=== PATIENT | male | born 1945 | race Caucasian/White ===

== ENCOUNTER 2021-05-12 17:51 | Inpatient (IN) | payer OTHER, SELFPAY ==
[~2021-05-12] VITALS: Ht 177.8 cm; Wt 96.6 kg
[2021-05-12 17:51] VITALS: BP_SYST 196
[~2021-05-12 17:51] MED LIST: ARA20 PO; CARB15DR OP; CETI-80 PO; LEVO88TA5 PO; LOP600 PO; MONT-40 PO; MOXI3DRO13 LEFT EYE; NEU300 PO; OMEP20CA15 PO; OXYIR5 PO; POLY10DR18 LEFT EYE; PREDEYE1% LEFT EYE; TRAZ-251 PO; VENL150C53 PO
--- NOTE | 2021-05-12 18:00 | NUR ---
ER DR. TENORIO EXAMINING PT ON NANCY
--- NOTE | 2021-05-12 18:20 | NUR ---
Placed in room 3 . Placed on compliance monitor, blood pressure machine and pulse oximeter. To gown for exam. Side rails up.
--- NOTE | 2021-05-12 18:25 | NUR ---
PT BIBA FROM HOME C/O SOB AND COUGH FOR ABOUT A WEEK. PER EMS PT 02 SAT ON SCENE WAS IN THE 70S. PT PLACED ON NRB @ 15 LPM, PT ARRIVES 98%, COOL, PALE, DIAPHORETIC. DENIES ANY PAIN. STATES HX OF COPD & ASTHMA. PT IS EASILY AGITATED
--- NOTE | 2021-05-12 18:30 | NUR ---
ATTEMPT TO START PIV, PT YELLING "TAKE IT OUT" AND REFUSING ANOTHER ATTEMPT AT THIS TIME
--- NOTE | 2021-05-12 19:09 | NUR ---
LAB AT THE BEDSIDE
--- NOTE | 2021-05-12 19:24 | NUR ---
REPORT GIVEN TO BOB HOLGUIN FOR CONTINUING CARE
--- NOTE | 2021-05-12 19:48 | NUR ---
Dr. Isaac bedside for pt re-eval and update
--- NOTE | 2021-05-12 19:53 | NUR ---
IV start successful on R upper arm, 20 G
[2021-05-12 20:02] LABS: BASOPHILS # (AUTO) 0.1 K/uL (0.0-0.2); BASOPHILS % (AUTO) 0.7 % (0.0-2.0); EOSINOPHILS # (AUTO) 0.2 K/uL (0.0-0.4); HEMATOCRIT 39.4 % (36-54); HEMOGLOBIN 13.1 g/dL (14.0-18.0); LYMPHOCYTES # (AUTO) 0.6 K/uL (1.0-5.5); LYMPHOCYTES % (AUTO) 7.5 % (20.5-51.5); MEAN CORPUSCULAR HEMOGLOBIN 29 pg (27-31); MEAN CORPUSCULAR HGB CONC 33 % (32-36); MEAN CORPUSCULAR VOLUME 88 fL (79.0-98.0); MONOCYTES # (AUTO) 0.5 K/uL (0.0-1.0); MONOCYTES % (AUTO) 6.3 % (1.7-9.3); NEUTROPHILS % (AUTO) 83.5 % (40.0-70.0); PLATELET COUNT (AUTO) 259 K/uL (130-430); RED BLOOD CELL COUNT(AUTO) 4.49 MIL/uL (4.2-6.2); RED CELL DISTRIBUTION WIDTH 15.1 % (9.0-15.0); WHITE BLOOD COUNT (AUTO) 8.4 K/uL (4.8-10.8)
[2021-05-12 20:16] LABS: ANION GAP 5 (5-15); CALCIUM 8.9 mg/dL (8.4-11.0); CHLORIDE 100 mmol/L (98-107); CREATININE 1.47 mg/dL (0.55-1.30); GLUCOSE 305 mg/dL (70-99); SODIUM SERUM 132 mmol/L (136-145); UREA NITROGEN, BLOOD 20 mg/dL (8-21)
--- NOTE | 2021-05-12 20:17 | NUR ---
Pt verbalized understanding that he's awaiting lab results
[2021-05-12 20:21] LABS: ALANINE AMINOTRANSFERASE 13 U/L (12-78); ASPARTATE AMINOTRANSFERASE 13 U/L (10-37); TOTAL BILIRUBIN 0.2 mg/dL (0.0-1.0)
[2021-05-12 20:29] LABS: POTASSIUM 5.5 mmol/L (3.5-5.1)
[2021-05-12] MEDS ORDERED: FUROSEMIDE 20 MG/2 ML VIAL IVP ONE (21:15)
[2021-05-12] MEDS ORDERED: INSULIN REGULAR, HUMAN 10 UNITS/0.1 ML INJ IVP ONE (21:15)
[2021-05-12] MEDS ORDERED: DEXTROSE 50% JECT 50 ML DISP.SYRIN IVP ONE (21:15)
--- NOTE | 2021-05-12 21:21 | NUR ---
VSS no s/s of acute distress, awaiting Lab results
--- NOTE | 2021-05-12 22:33 | NUR ---
Pt verbalized getting " tired of waiting "
--- NOTE | 2021-05-12 22:40 | NUR ---
Dr. Frankel called for Dr. Isaac ( in the middle of bedside Lac repair procedure ) told that he would call him back ROSA
--- NOTE | 2021-05-12 23:04 | NUR ---
Dr. Frankel bedside for Pt eval
[2021-05-12] MEDS ORDERED: CARBOXYMETHYLCELLULOSE SODIUM OP PRN (23:15)
[2021-05-12] MEDS ORDERED: oxyCODONE HCL 5 MG TABLET PO PRN (23:15)
[2021-05-12] MEDS ORDERED: INSULIN REGULAR, HUMAN 100 UNITS/ML, 10 ML VIAL (humuLIN R) SUBCUT PRN (23:45)
[2021-05-12] MEDS ORDERED: cloNIDine HCL 0.1 MG TABLET PO PRN (23:45)
[2021-05-12] MEDS ORDERED: DEXTROSE 50% JECT 50 ML DISP.SYRIN IVP PRN (23:45)
--- NOTE | 2021-05-13 00:36 | NUR ---
Pt back from Radiology, well tolerated
--- NOTE | 2021-05-13 01:44 | NUR ---
Increased urine output, Pt using urinal bedside, well tolerated
--- NOTE | 2021-05-13 02:45 | NUR ---
Provided complete linen change, well tolerated
--- NOTE | 2021-05-13 03:50 | NUR ---
Awaiting bed assignment, pt verbalized understanding
--- NOTE | 2021-05-13 04:55 | NUR ---
VSS no s/s of acute distress Resting on hospital bed with rails up
[2021-05-13] MEDS ORDERED: MOXIFLOXACIN HCL LEFT EYE SCH (06:00)
--- NOTE | 2021-05-13 06:10 | NUR ---
Emptied many urinal with more than sufficient urine output
[2021-05-13] MEDS ORDERED: LEVOTHYROXINE SODIUM 0.088 MG TABLET PO SCH (07:00)
[2021-05-13 07:42] LABS: BASOPHILS # (AUTO) 0.1 K/uL (0.0-0.2); BASOPHILS % (AUTO) 0.8 % (0.0-2.0); EOSINOPHILS # (AUTO) 0.4 K/uL (0.0-0.4); EOSINOPHILS % (AUTO) 5.8 % (0.0-4.0); HEMATOCRIT 37.2 % (36-54); HEMOGLOBIN 12.6 g/dL (14.0-18.0); LYMPHOCYTES # (AUTO) 1.6 K/uL (1.0-5.5); LYMPHOCYTES % (AUTO) 21.8 % (20.5-51.5); MEAN CORPUSCULAR HEMOGLOBIN 30 pg (27-31); MEAN CORPUSCULAR HGB CONC 34 % (32-36); MEAN CORPUSCULAR VOLUME 87 fL (79.0-98.0); MONOCYTES # (AUTO) 0.8 K/uL (0.0-1.0); MONOCYTES % (AUTO) 11.6 % (1.7-9.3); NEUTROPHILS # (AUTO) 4.3 K/uL (1.8-7.7); PLATELET COUNT (AUTO) 249 K/uL (130-430); RED BLOOD CELL COUNT(AUTO) 4.26 MIL/uL (4.2-6.2); RED CELL DISTRIBUTION WIDTH 15.3 % (9.0-15.0); WHITE BLOOD COUNT (AUTO) 7.1 K/uL (4.8-10.8)
[2021-05-13 07:57] LABS: ANION GAP 5 (5-15); CALCIUM 8.8 mg/dL (8.4-11.0); CHLORIDE 102 mmol/L (98-107); CREATININE 1.26 mg/dL (0.55-1.30); GLUCOSE 218 mg/dL (70-99); POTASSIUM 4.1 mmol/L (3.5-5.1); SODIUM SERUM 136 mmol/L (136-145); UREA NITROGEN, BLOOD 17 mg/dL (8-21)
--- NOTE | 2021-05-13 07:58 | NUR ---
Blood Sugar checked and results were 253, 4 units of regular insulin given. Called pharmacy in regards to medication levothyroxine that needs to be given, line service technician stated they will bring the medication to ER.
[2021-05-13 08:13] LABS: ALANINE AMINOTRANSFERASE 11 U/L (12-78); ALBUMIN 2.9 g/dL (3.4-4.8); ASPARTATE AMINOTRANSFERASE 13 U/L (10-37); FREE T4 (FREE THYROXINE) 0.9 ng/dl (0.8-1.5); THYROID STIMULATING HORMONE 1.62 uIu/mL (0.36-3.74); TOTAL BILIRUBIN 0.2 mg/dL (0.0-1.0)
--- NOTE | 2021-05-13 08:18 | NUR ---
DR WILHELM HERE TO EVALUATE PT.
--- NOTE | 2021-05-13 08:19 | NUR ---
DR. WILHELM AT THE BEDSIDE
--- NOTE | 2021-05-13 08:38 | NUR ---
Patient will be admitted to care of [Dr. Juarez]. Admitted to [Tele] unit. Will go to room [120A]. Belongings list completed. Complete and up to date summary report printed. SBAR report to be given at bedside with opportunity for questions.
--- NOTE | 2021-05-13 08:40 | NUR ---
DR WILHELM CALLED FOR ELEVATED TROPONIN, NO NEW ORDERS.
[2021-05-13 08:55] VITALS: BP_SYST 129
--- NOTE | 2021-05-13 08:55 | NUR ---
Admission Note Received patient from ER with diagnosis of CHF.Right uppper arm iv saline lock intact.With right bka,healed stump. Initial Plan of Care discussed-patient verbalized understanding.Personal belongings recorded. Oriented to room, call light, pain management and safety.
[2021-05-13] MEDS ORDERED: FUROSEMIDE 20 MG/2 ML VIAL IVP SCH (09:00)
[2021-05-13] MEDS ORDERED: CARVEDILOL 3.125 MG TABLET (COREG) PO SCH (09:00)
[2021-05-13] MEDS ORDERED: NON-FORMULARY MEDICATION (Cetirizine Hcl (Zyrtec) 10 MG) PO SCH (09:00)
[2021-05-13] MEDS ORDERED: OMEPRAZOLE Non-Formulary 20 MG CAPSULE.DR PO SCH (09:00)
[2021-05-13] MEDS ORDERED: GEMFIBROZIL 600 MG TABLET (LOPID) PO SCH (09:00)
[2021-05-13] MEDS ORDERED: POLYMYXIN B/TRIMETHOPRIM EYE DROPS 10 mL OP SCH (09:00)
[2021-05-13] MEDS ORDERED: GABAPENTIN 300 MG CAPSULE PO SCH (09:00)
[2021-05-13] MEDS ORDERED: LEFLUNOMIDE PO SCH (09:00)
[2021-05-13] MEDS ORDERED: LOSARTAN POTASSIUM 50 MG TABLET (COZAAR) PO SCH (09:00)
[2021-05-13] MEDS ORDERED: VENLAFAXINE HCL 300 MG PO SCH (09:00)
[2021-05-13] MEDS ORDERED: prednisoLONE 1% OPHTHALMIC SUSPN 5 ML OP SCH (09:00)
[2021-05-13] MEDS ORDERED: PANTOPRAZOLE SODIUM 40 MG TAB PO SCH (09:00)
--- NOTE | 2021-05-13 09:03 | NUR ---
DR WILHELM, FOOD BAGGING MACHINE OPERATOR IS AWARE OF THE CONSULT RE: CHF.
[2021-05-13 09:38] LABS: CHOLESTEROL 152 mg/dL (<200); HDL CHOLESTEROL 56 mg/dL (>45); LDL CHOLESTEROL 73 mg/dL (<100); TRIGLYCERIDES 103 mg/dL (30-150)
--- NOTE | 2021-05-13 12:40 | NUR ---
AMA: Patient does not wish to proceed with medical care recommended by Dr. Frankel. Patient given information related to possible complications, up to and including , which could occur as a result of leaving hospital at this time. Patient verbalizes understanding of risks involved leaving against medical advice. Patient has signed AMA form.
--- NOTE | 2021-05-13 13:00 | NUR ---
Aware of AMA: Spoke with Dr Frankel and aware that patient went AMA.
[2021-05-13] MEDS ORDERED: MONTELUKAST 10 MG TABLET PO SCH (18:00)
[2021-05-13] MEDS ORDERED: traZODone HCL 50 MG TABLET (DESYREL) PO SCH (21:00)
[2021-05-13] MEDS ORDERED: CARVEDILOL 6.25 MG TABLET (COREG) PO SCH (21:00)
[2021-05-13] MEDS ORDERED: INSULIN GLARGINE 100 UNITS/ML 10 ML VIAL SUBCUT SCH (21:00)
== END 2021-05-13 12:40 | disposition left against medical advice (07) | DRG 280 ==
LOC: SED 17:51 → STU 23:11
PROVIDERS: ADMIT Internal Medicine; ATTEND Internal Medicine
DX: I21.4 Non-ST elevation (NSTEMI) myocardial infarction (principal); J96.01 Acute respiratory failure with hypoxia; I50.41 Acute combined systolic (congestive) and diastolic (congestive) heart failure; I13.0 Hypertensive heart and chronic kidney disease with heart failure and stage 1 through stage 4 chronic kidney disease, or unspecified chronic kidney disease; E44.1 Mild protein-calorie malnutrition; I42.0 Dilated cardiomyopathy; E78.5 Hyperlipidemia, unspecified; E03.9 Hypothyroidism, unspecified; E11.22 Type 2 diabetes mellitus with diabetic chronic kidney disease; N18.9 Chronic kidney disease, unspecified; E11.51 Type 2 diabetes mellitus with diabetic peripheral angiopathy without gangrene; M13.842 Other specified arthritis, left hand; E11.42 Type 2 diabetes mellitus with diabetic polyneuropathy; Z96.652 Presence of left artificial knee joint; M13.841 Other specified arthritis, right hand; F41.9 Anxiety disorder, unspecified; E78.00 Pure hypercholesterolemia, unspecified; I50.9 Heart failure, unspecified; E87.5 Hyperkalemia; Z20.822 Contact with and (suspected) exposure to COVID-19; J43.9 Emphysema, unspecified; Z88.6 Allergy status to analgesic agent; Z88.0 Allergy status to penicillin; Z88.2 Allergy status to sulfonamides; Z88.8 Allergy status to other drugs, medicaments and biological substances; Z79.2 Long term (current) use of antibiotics; Z79.899 Other long term (current) drug therapy; Z89.511 Acquired absence of right leg below knee; Z68.30 Body mass index [BMI] 30.0-30.9, adult
CPT/HCPCS: 36415; 71045; 71250-TC; 76376; 80053; 80061; 82962; 83880; 84100; 84439; 84443; 84484; 85025; 93005; 96374; 96375; 99285; G0378; J1815; J1940

== ENCOUNTER 2021-06-29 09:21 | Inpatient (IN) | payer OTHER, SELFPAY ==
[~2021-06-29] VITALS: Ht 167.6 cm; Wt 95.7 kg
[2021-06-29] VITALS (10 sets, daily range): BP systolic 79–123
[2021-06-29 10:04] LABS: BASOPHILS # (AUTO) 0.2 K/uL (0.0-0.2); BASOPHILS % (AUTO) 0.7 % (0.0-2.0); EOSINOPHILS # (AUTO) 0.1 K/uL (0.0-0.4); EOSINOPHILS % (AUTO) 0.2 % (0.0-4.0); HEMOGLOBIN 13.4 g/dL (14.0-18.0); LYMPHOCYTES # (AUTO) 1.6 K/uL (1.0-5.5); LYMPHOCYTES % (AUTO) 6.3 % (20.5-51.5); MEAN CORPUSCULAR HEMOGLOBIN 28 pg (27-31); MEAN CORPUSCULAR HGB CONC 30 % (32-36); MEAN CORPUSCULAR VOLUME 93 fL (79.0-98.0); MONOCYTES # (AUTO) 2.2 K/uL (0.0-1.0); NEUTROPHILS # (AUTO) 20.5 K/uL (1.8-7.7); NEUTROPHILS % (AUTO) 83.8 % (40.0-70.0); PLATELET COUNT (AUTO) 499 K/uL (130-430); RED BLOOD CELL COUNT(AUTO) 4.73 MIL/uL (4.2-6.2); RED CELL DISTRIBUTION WIDTH 15.1 % (9.0-15.0); WHITE BLOOD COUNT (AUTO) 24.5 K/uL (4.8-10.8)
[2021-06-29] MEDS ORDERED: NACL 0.9% 1,000 ML IV ONE ×2 (10:15→10:45)
[2021-06-29 10:22] LABS: INR 1.2 (0.80-1.20); PROTHROMBIN TIME 12.5 SECS (9.5-12.5)
[2021-06-29 10:29] LABS: ALANINE AMINOTRANSFERASE 12 U/L (12-78); ALBUMIN 2.5 g/dL (3.4-4.8); ALCOHOL, BLOOD 3 mg/dL (<10); ANION GAP 31 (5-15); ASPARTATE AMINOTRANSFERASE 66 U/L (10-37); CALCIUM 8.9 mg/dL (8.4-11.0); CHLORIDE 86 mmol/L (98-107); CREATININE 3.28 mg/dL (0.55-1.30); SODIUM SERUM 126 mmol/L (136-145); TOTAL BILIRUBIN 0.4 mg/dL (0.0-1.0); UREA NITROGEN, BLOOD 67 mg/dL (8-21)
[2021-06-29 10:36] LABS: GLUCOSE 852 mg/dL (70-99)
[2021-06-29] MEDS ORDERED: INSULIN REGULAR, HUMAN 100 UNITS in NS 99 ML IV ONE ×2 (10:45)
[2021-06-29] MEDS ORDERED: CALCIUM GLUCONATE 1 GM/10 ML VIAL IVP ONE (10:45)
[2021-06-29 10:46] LABS: ACETONE, SERUM POSITIVE (NEGATIVE)
[2021-06-29] MEDS ORDERED: NOREPINEPHRINE BITARTRATE 4 MG in NS 246 ML IV ONE (11:15)
[2021-06-29] MEDS ORDERED: *HEPARIN PER PHARMACY XX ONE (12:00)
[2021-06-29 13:01] LABS: BILIRUBIN,URINE NEGATIVE (NEGATIVE); BLOOD, URINE 3+ (NEGATIVE); COLOR,URINE YELLOW (YELLOW); GLUCOSE,URINE 3+ (NEGATIVE); KETONES,URINE 1+ (NEGATIVE); LEUKOCYTE ESTERASE ,URINE NEGATIVE (NEGATIVE); NITRITE, URINE NEGATIVE (NEGATIVE); PROTEIN URINE 1+ (NEGATIVE); UROBILINOGEN,URINE 0.2 (0.2-1.0)
[2021-06-29] MEDS: NACL 0.9% 1,000 ML IV SCH ×2 (13:01→22:00)
[2021-06-29 13:03] LABS: CLARITY/URINE SLIGHTLY HAZY (CLEAR)
[2021-06-29 13:16] LABS: BACTERIA,URINE FEW /HPF (None Seen); URINE AMORPHOUS URATE 1+ /HPF (None Seen); WBC,URINE 0-3 /HPF (0-3)
[2021-06-29 16:40] LABS: ANION GAP 29 (5-15); CALCIUM 8.6 mg/dL (8.4-11.0); CHLORIDE 91 mmol/L (98-107); CREATININE 3.17 mg/dL (0.55-1.30); PHOSPHORUS 7.9 mg/dL (2.7-4.5); POTASSIUM 4.6 mmol/L (3.5-5.1); SODIUM SERUM 129 mmol/L (136-145); UREA NITROGEN, BLOOD 70 mg/dL (8-21)
[2021-06-29 16:54] LABS: GLUCOSE 705 mg/dL (70-99)
[2021-06-29] MEDS ORDERED: INSULIN REGULAR, HUMAN 100 UNITS/ML, 10 ML VIAL IVP ONE (17:30)
[2021-06-29] MEDS ORDERED: INSULIN REGULAR, HUMAN 100 UNITS in NS 99 ML IV SCH ×2 (17:30)
[2021-06-29] MEDS: MEROPENEM 500 MG in NS 50 ML IV SCH (21:17)
[2021-06-29] MEDS ORDERED: NOREPINEPHRINE 4 MG/4 ML VIAL IV ONE (22:24)
[2021-06-29] MEDS ORDERED: NOREPINEPHRINE BITARTRATE 4 MG in NS 246 ML IV PRN (22:30)
[2021-06-30] VITALS (18 sets, daily range): BP systolic 87–123
[2021-06-30] LABS: ANION GAP 21 (5-15); CALCIUM 8.6 mg/dL (8.4-11.0); CHLORIDE 97 mmol/L (98-107); CREATININE 3.27 mg/dL (0.55-1.30); PHOSPHORUS 4.3 mg/dL (2.7-4.5); POTASSIUM 3.8 mmol/L (3.5-5.1); SODIUM SERUM 132 mmol/L (136-145); UREA NITROGEN, BLOOD 71 mg/dL (8-21)
[2021-06-30 00:05] LABS: GLUCOSE 432 mg/dL (70-99)
[2021-06-30 06:33] LABS: BASOPHILS % (AUTO) 0.1 % (0.0-2.0); EOSINOPHILS % (AUTO) 0.1 % (0.0-4.0); HEMATOCRIT 39.9 % (36-54); HEMOGLOBIN 13.4 g/dL (14.0-18.0); LYMPHOCYTES # (AUTO) 0.2 K/uL (1.0-5.5); LYMPHOCYTES % (AUTO) 1.6 % (20.5-51.5); MEAN CORPUSCULAR HEMOGLOBIN 29 pg (27-31); MEAN CORPUSCULAR HGB CONC 34 % (32-36); MEAN CORPUSCULAR VOLUME 85 fL (79.0-98.0); MONOCYTES # (AUTO) 1.6 K/uL (0.0-1.0); MONOCYTES % (AUTO) 12.1 % (1.7-9.3); NEUTROPHILS # (AUTO) 11.3 K/uL (1.8-7.7); NEUTROPHILS % (AUTO) 86.1 % (40.0-70.0); PLATELET COUNT (AUTO) 277 K/uL (130-430); RED CELL DISTRIBUTION WIDTH 14.5 % (9.0-15.0); WHITE BLOOD COUNT (AUTO) 13.1 K/uL (4.8-10.8)
[2021-06-30 06:51] LABS: ALANINE AMINOTRANSFERASE 21 U/L (12-78); ANION GAP 17 (5-15); ASPARTATE AMINOTRANSFERASE 82 U/L (10-37); CALCIUM 8.6 mg/dL (8.4-11.0); CHLORIDE 103 mmol/L (98-107); CREATININE 3.41 mg/dL (0.55-1.30); GLUCOSE 182 mg/dL (70-99); PHOSPHORUS 2.7 mg/dL (2.7-4.5); POTASSIUM 3.5 mmol/L (3.5-5.1); SODIUM SERUM 136 mmol/L (136-145); THYROID STIMULATING HORMONE 0.38 uIu/mL (0.36-3.74); TOTAL BILIRUBIN 0.2 mg/dL (0.0-1.0); UREA NITROGEN, BLOOD 74 mg/dL (8-21)
[2021-06-30] MEDS: MEROPENEM 500 MG in NS 50 ML IV SCH (09:25)
[2021-06-30] MEDS: NACL 0.9% 1,000 ML IV SCH (09:26)
[2021-06-30] MEDS ORDERED: ATORVASTATIN 20 MG TABLET PO ONE (10:00)
[2021-06-30] MEDS ORDERED: INSULIN LISPRO SLIDING SCALE 100 UNITS/ML VIAL (humaLOG) SUBCUT PRN (11:15)
[2021-06-30] MEDS ORDERED: INSULIN NPH 100 UNITS/ML 10 ML VIAL SUBCUT ONE (11:30)
[2021-06-30] MEDS ORDERED: DEXTROSE 50%-WATER 50 ML DISP.SYRIN IVP PRN (11:30)
[2021-06-30] MEDS ORDERED: GLUCOSE (DEXTROSE) ORAL GEL -Adults PO PRN (11:30)
[2021-06-30] MEDS ORDERED: D5W 1,000 ML IV PRN (11:30)
[2021-06-30] MEDS ORDERED: D5NS 1,000 ML IV SCH (12:00)
[2021-06-30] MEDS ORDERED: ADENOSINE 6MG/2ML VIAL IVP ONE ×2 (12:15→12:45)
[2021-06-30] MEDS ORDERED: METOPROLOL TARTRATE 5 MG/5 ML AMPUL IVP ONE (12:45)
[2021-06-30] MEDS ORDERED: SODIUM BICARBONATE 8.4% JECT 50 MEQ/50 ML SYRINGE IVP ONE (14:00)
[2021-06-30] MEDS ORDERED: ALBUMIN HUMAN 25% 100 ML IV ONE (14:00)
[2021-06-30] MEDS: AZITHROMYCIN 500 MG in NS 250 ML IV SCH ×2 (14:50→15:00)
[2021-06-30] MEDS ORDERED: METOPROLOL TARTRATE 5 MG/5 ML AMPUL IVP PRN (17:30)
[2021-06-30] MEDS ORDERED: INSULIN NPH 100 UNITS/ML 10 ML VIAL SUBCUT SCH (21:00)
[2021-06-30] MEDS ORDERED: METOPROLOL TARTRATE 25 MG TABLET PO SCH (21:00)
[2021-06-30] MEDS ORDERED: HEPARIN SODIUM,PORCINE 5,000 UNITS/ML VIAL SUBCUT SCH (21:00)
[2021-07-01] MEDS ORDERED: ATORVASTATIN 20 MG TABLET PO SCH (09:00)
== END 2021-06-30 18:42 | DRG 871 ==
LOC: SED 09:21 → SIC 11:57
PROVIDERS: ADMIT Preventive Medicine Preventive Medicine/Occupational Environmental Medicine; ATTEND Preventive Medicine Preventive Medicine/Occupational Environmental Medicine
PROC: 06HY33Z Insertion of Infusion Device into Lower Vein, Percutaneous Approach (ICD-10-PCS; principal; 2021-06-29)
PROC: B54CZZA Ultrasonography of Left Lower Extremity Veins, Guidance (ICD-10-PCS; 2021-06-29)
PROC: 5A12012 Performance of Cardiac Output, Single, Manual (ICD-10-PCS; 2021-06-30)
PROC: 5A2204Z Restoration of Cardiac Rhythm, Single (ICD-10-PCS; 2021-06-30)
PROC: 0BH17EZ Insertion of Endotracheal Airway into Trachea, Via Natural or Artificial Opening (ICD-10-PCS; 2021-06-30)
DX: A41.9 Sepsis, unspecified organism (principal); E11.10 Type 2 diabetes mellitus with ketoacidosis without coma; J69.0 Pneumonitis due to inhalation of food and vomit; I21.A1 Myocardial infarction type 2; R65.21 Severe sepsis with septic shock; J96.21 Acute and chronic respiratory failure with hypoxia; G93.40 Encephalopathy, unspecified; E87.1 Hypo-osmolality and hyponatremia; I42.9 Cardiomyopathy, unspecified; N17.9 Acute kidney failure, unspecified; N39.0 Urinary tract infection, site not specified; I13.0 Hypertensive heart and chronic kidney disease with heart failure and stage 1 through stage 4 chronic kidney disease, or unspecified chronic kidney disease; I50.22 Chronic systolic (congestive) heart failure; D75.839 Thrombocytosis, unspecified; E03.9 Hypothyroidism, unspecified; E11.22 Type 2 diabetes mellitus with diabetic chronic kidney disease; N18.9 Chronic kidney disease, unspecified; E78.00 Pure hypercholesterolemia, unspecified; J45.909 Unspecified asthma, uncomplicated; G89.4 Chronic pain syndrome; E66.9 Obesity, unspecified; E11.51 Type 2 diabetes mellitus with diabetic peripheral angiopathy without gangrene; I34.0 Nonrheumatic mitral (valve) insufficiency; E87.5 Hyperkalemia; Z20.822 Contact with and (suspected) exposure to COVID-19; I46.9 Cardiac arrest, cause unspecified; I49.01 Ventricular fibrillation; E78.5 Hyperlipidemia, unspecified; I48.91 Unspecified atrial fibrillation; I25.10 Atherosclerotic heart disease of native coronary artery without angina pectoris; Z88.0 Allergy status to penicillin; Z88.2 Allergy status to sulfonamides; Z88.1 Allergy status to other antibiotic agents; Z89.511 Acquired absence of right leg below knee; Z68.34 Body mass index [BMI] 34.0-34.9, adult; Z88.6 Allergy status to analgesic agent; Z88.5 Allergy status to narcotic agent; Z88.8 Allergy status to other drugs, medicaments and biological substances; Z79.899 Other long term (current) drug therapy
CPT/HCPCS: 36415; 36600; 71045; 76770; 80048; 80053; 81000; 82009; 82803-TC; 82962; 83605; 83735; 83880; 84100; 84436; 84443; 84484; 85025; 85610-TC; 85730-TC; 86738; 87040; 87086; 93005; 96374; 96375; 99291; G0482; J0153; J0456; J0610; J1815; J1956; J2185; J3490; J7050